=== PATIENT | female | born 1965 | race Caucasian/White ===

== ENCOUNTER 2018-01-08 15:24 | Emergency (ER) | END 2018-01-08 19:36 | disposition home or self-care (01) ==

== ENCOUNTER 2018-09-13 21:01 | Emergency (ER) | payer OTHER ==
[~2018-09-13] VITALS: Ht 170.2 cm; Wt 72.0 kg
[~2018-09-13 21:01] MED LIST: ASPI81TA50 PO; ATOR40TA68 PO; BEN25 PO; EMPA10TA PO; ERGO500013 PO; GLYB1TAB3 PO; IBUP-1545 PO; LYRI100 PO; METO10TA3 PO; NAPR-688 PO; OMEP40CA6 PO; PANT40TA4 PO; SITA100T11 PO; TERB250T13 PO; TIZA4TAB PO; TOPI200C6 PO; ZOLP10TA5 PO
[2018-09-13 21:08] VITALS: Ht 170.2 cm; Wt 72.0 kg
[2018-09-13] MEDS ORDERED: KETOROLAC 15 MG INJ IV STA (22:34)
--- NOTE | 2018-09-14 00:11 | ERD ---
ER Documentation Chief Complaint Chief Complaint CP "pressure" X 2 hrs, bilateral hand numbness, nausea, dizziness, X 6 hrs HPI This is a 53-year-old female with a past medical history of hyperlipidemia, diabetes, fibromyalgia, chronic pain who is presenting with several hours of waxing and waning moderate nonradiating midsternal pressure-like chest pain, increased anxiousness, hyperventilation, bilateral hand tingling, nausea and lightheadedness. The patient reports that he eats she gets these symptoms regularly, but typically they do not last this long. The patient does endorse being under a significant amount of stress due to her chronic pain syndromes. She is constantly in pain, and it can be overwhelming. She does not have a personal or family history of heart attack or stroke per her report. The patient denies feeling sick recently. The patient denies fever or chills. The patient has had no headache or vision changes. The patient does not endorse neck or back pain. The patient denies abdominal pain. The patient denies changes to bowel movements or urination. The patient has had no focal deficits. The patient has had no weakness or numbness to the face or extremities. ROS All systems reviewed and are negative except as per history of present illness. Medications Home Meds Active Scripts Ibuprofen* (Motrin*) 600 Mg Tab, 600 MG PO Q6H PRN for PAIN AND/OR INFLAMMATION, #30 TAB Prov:NEHA CORREIA MD 09/14/18 Naproxen* (Naproxen*) 500 Mg Tablet, 500 MG PO BID PRN for PAIN, #30 TAB Prov:MIRZA SIMPSON MD 01/08/18 Reported Medications Omeprazole* (Omeprazole*) 40 Mg Capsule.dr, 40 MG PO DAILY, #30 CAP STOP TAKING WHEN TAKE PANTOPRAZOLE 01/08/18 Diphenhydramine Hcl* (Benadryl*) 25 Mg Cap, 25 MG PO Q6H PRN for ITCHING, CAP 01/08/18 Glyburide/Metformin HCl (Glucovance 5-500 mg Tablet) 1 Each Tablet, 2 EACH PO BID, TAB 01/08/18 Empagliflozin (Jardiance) 10 Mg Tablet, 10 MG PO QAM, TAB 01/08/18 Sitagliptin* (Januvia*) 100 Mg Tablet, 100 MG PO DAILY, #30 TAB 01/08/18 Tizanidine Hcl* (Tizanidine Hcl*) 4 Mg Tablet, 8 MG PO QHS PRN for SPASTICITY, TAB 01/08/18 Pantoprazole* (Pantoprazole*) 40 Mg Tablet.dr, 40 MG PO AC BREAKFAST, TAB STOP TAKING WHEN TAKE OMEPRAZOLE 01/08/18 Metoclopramide Hcl* (Metoclopramide Hcl*) 10 Mg Tablet, 10 MG PO Q6H PRN for NAUSEA AND OR VOMITING, TAB 01/08/18 Atorvastatin* (Atorvastatin*) 40 Mg Tablet, 40 MG PO QHS, #30 TAB 01/08/18 Terbinafine Hcl* (Terbinafine Hcl*) 250 Mg Tablet, 250 MG PO DAILY, TAB 01/08/18 Aspirin (Aspir-Low) 81 Mg Tablet.dr, 81 MG PO DAILY 01/08/18 Ergocalciferol (Vitamin D2) (VITAMIN D2) 50,000 Unit Capsule, 16630 UNIT PO Q7D, CAP 01/08/18 Ibuprofen* (Ibuprofen*) 800 Mg Tab, 800 MG PO Q6H PRN for PAIN, TAB 01/08/18 Pregabalin* (Lyrica*) 100 Mg Capsule, 100 MG PO TID, CAP 01/08/18 Topiramate* (Trokendi XR*) 200 Mg Cap.er.24h, 600 MG PO QHS, CAP 01/08/18 Zolpidem Tartrate* (Zolpidem Tartrate*) 10 Mg Tablet, 10 MG PO QHS PRN for INSOMNIA, #30 TAB 01/08/18 Allergies Allergies: Coded Allergies: No Known Drug Allergy (Verified Allergy, Unknown, 01/08/18) PMhx/Soc History of Surgery: Yes (APPENDECTOMY, LOWER BACK FUSION, CHOLECYSTECTOMY) Anesthesia Reaction: No Hx Neurological Disorder: No Hx Respiratory Disorders: No Hx Cardiac Disorders: Yes (Hyperlipidemia, diabetes) Hx Psychiatric Problems: No Hx Miscellaneous Medical Probl: Yes (Fibromyalgia, chronic pain) Hx Alcohol Use: No Hx Substance Use: No Hx Tobacco Use: Yes (1/2 pack daily) Smoking Status: Current every day smoker FmHx Family History: diabetes Physical Exam Vitals Vital Signs Date Temp Pulse Resp B/P (MAP) Pulse Ox O2 O2 Flow FiO2 Time Delivery Rate 09/14/18 87 13 118/55 99 Room Air 00:29 (76) 09/13/18 Nasal 2 21:41 Cannula 09/13/18 98.9 100 18 132/69 99 21:08 (90) Physical Exam Const: No apparent distress, well-developed, well-nourished Head: Normocephalic, Atraumatic Eyes: Normal Conjunctiva. Extraocular movements intact. Pupils equal, round and reactive to light ENT: Normal External Ears, Nose and Mouth. Neck: Full range of motion. No meningismus. Resp: Clear to auscultation bilaterally, No wheezes, rales or rhonchi Cardio: Regular rate and rhythm. No murmurs, rubs or gallops Abd: Soft, non tender, non distended. Normal bowel sounds Skin: No petechiae or rashes Back: No midline tenderness. No CVA tenderness Ext: No cyanosis, or edema Neur: Awake and alert, oriented 4. Cranial nerves intact. No facial droop. Normal strength, sensation and coordination. Psych: Normal Mood and Affect Result Diagram: 09/13/18213709/[id number]/182137 Results 24 hrs Laboratory Tests Test 09/13/18 21:38 White Blood Count 8.9 10^3/ul Red Blood Count 4.79 10^6/ul Hemoglobin 13.9 g/dl Hematocrit 41.1 % Mean Corpuscular Volume 85.8 fl Mean Corpuscular Hemoglobin 29.0 pg Mean Corpuscular Hemoglobin Concent 33.8 g/dl Red Cell Distribution Width 13.6 % Platelet Count 215 10^3/UL Mean Platelet Volume 10.4 fl Immature Granulocytes % 0.100 % Neutrophils % 51.3 % Lymphocytes % 40.2 % Monocytes % 6.9 % Eosinophils % 1.2 % Basophils % 0.3 % Nucleated Red Blood Cells % 0.0 /100WBC Immature Granulocytes # 0.010 10^3/ul Neutrophils # 4.5 10^3/ul Lymphocytes # 3.6 10^3/ul Monocytes # 0.6 10^3/ul Eosinophils # 0.1 10^3/ul Basophils # 0.0 10^3/ul Nucleated Red Blood Cells # 0.0 10^3/ul Sodium Level 147 mmol/L Potassium Level 4.1 mmol/L Chloride Level 106 mmol/L Carbon Dioxide Level 30 mmol/L Anion Gap 11 Blood Urea Nitrogen 20 mg/dl Creatinine 0.77 mg/dl Est Glomerular Filtrat Rate mL/min > 60 mL/min Glucose Level 115 mg/dl Calcium Level 9.9 mg/dl Troponin I < 0.012 ng/ml Current Medications Medications Dose Sig/Avila Start Time Status Last (Trade) Ordered Route PRN Stop Time Admin Dose Reason Admin Ketorolac 15 mg ONCE STAT 09/13/18 DC 09/13/18 Tromethamine IV 22:34 09/13/18 22:47 (Toradol) 22:35 Oxycodone/ 1 tab ONCE ONCE 09/14/18 DC 09/14/18 Acetaminophen PO 00:30 09/14/18 00:24 (Percocet 00:31 (5/ 325)) Procedures/MDM MDM The patient's presentation warrants further investigation. Previous medical r ecords, if available, were reviewed. LABS The patient's laboratory testing was obtained and reviewed. No emergent treatment was required unless described below. CBC: No E/o systemic infection or severe anemia or thrombocytopenia Chemistry: No E/o severe acidosis or alkalosis or renal failure or diabetic ketoacidosis Troponin: No E/o acute ischemia EKG EKG read by me: Rate/Rhythm: Regular rate and rhythm at a rate of 94 bpm Intervals: Normal [place]: Normal Impression: No evidence of acute ischemia or arrhythmia IMAGING Imaging and Radiology interpretation reviewed. CXR FINDINGS: The cardiomediastinal silhouette is within normal limits. The lungs are clear. No signs of pleural fluid or pneumothorax are seen. The osseous structures and soft tissues are unremarkable. IMPRESSION: No evidence for active cardiopulmonary disease. Electronically viewed and signed by Chinyere Gutierrez Physician on 09/13/2018 22:46 TREATMENT/DISPOSITION The patient presents for chest pain. The patient does have chronic pain including chest pain, and this could certainly be an exacerbation of her chronic symptoms. The patient also appears anxious in the room, and I do have suspicion for anxiety. That said, a cardiac workup was necessary. The patient's chest xray does not reveal pneumonia or pneumothorax or pleural effusions or pulmonary edema. The patient does not have a widened mediastinum and does not have signs or symptoms concerning for thoracic aortic aneurysm or dissection. The patient does not have pneumomediastinum or signs concerning for esophageal tear or rupture. The patient has no clinical or radiographic signs of pericardial effusion or tamponade. The patient does not have pneumoperitoneum and I have decreased suspicion of viscus perforation as possible referred pain. The patient does not have a history of heart failure and I have low suspicion for this. The patient does not have a diagnosis of COPD and is not wheezing today. The patient is not tachypneic or hypoxic. The patient is breathing comfortably and without pleuritic pain. The patient is not on hormonal therapy. The patient has no history of clotting or bleeding disorders. The patient has no calf tenderness. The patient has had no hemoptysis. I have decreased suspicion for PE. The patient's troponin and EKG are reassuring. I have low suspicion for acute coronary syndrome. The patient's HEART score is equal to or less than 3. This stratifies the patient into the low risk (<1%) group for an major adverse cardiac event within the next 30 days. Shared decision making was enacted. The risks and benefits of admission and discharge were discussed with the patient and it was ultimately decided that the patient would be discharged with close outpatient follow up and evaluation for functional testing within 72 hours. The patient was treated with Toradol and oxycodone with improvement of her symptoms. Upon reevaluation of the patient, symptoms have improved. No emergent diagnoses were identified. At this time, I feel that the patient stable for discharge. The patient was instructed to follow-up with a primary care physician in 1-3 days. The patient will be given strict precautions with which to return to the emergency department. Prescriptions: Ibuprofen The patient's blood pressure was elevated at greater than 120/80 while in the emergency department. The patient was otherwise stable with no evidence of hypertensive urgency or emergency. The patient does not require admission for blood pressure control. I have discussed with the patient the risks of hypertension. I have instructed the patient to return to the ER for any new or worsening symptoms including chest pain, shortness of breath, headache, blurred vision, confusion, nausea, vomiting or LOC. I have advised the patient to follow up with the primary care physician for outpatient monitoring and treatment for hypertension in 1-3 days. Disclaimer: Inadvertent spelling and grammatical errors are likely due to EHR/dictation software use and do not reflect on the overall quality of patient care. Note that the electronic time recorded on this note does not necessarily reflect the actual time of the patient encounter. Departure Diagnosis: Primary Impression: Nonspecific chest pain Additional Impressions: Hyperventilation Nausea Lightheadedness Anxiousness Condition: NEHA Choudhary MD Sep 14, 2018 00:11
[2018-09-14] MEDS ORDERED: IBUP-1542 PO (00:12)
[2018-09-14 00:29] VITALS: BP 118/55; PULSE 87; RESP 13
[2018-09-14] MEDS ORDERED: OXYCODONE/ACETAMINOPHEN (5/325) TAB PO ONE (00:30)
== END 2018-09-14 00:31 | disposition home or self-care (01) ==
LOC: E/R 21:01
DX: F41.9 Anxiety disorder, unspecified (principal); R06.4 Hyperventilation; R42 Dizziness and giddiness; R11.0 Nausea; E11.9 Type 2 diabetes mellitus without complications; F17.210 Nicotine dependence, cigarettes, uncomplicated; Z79.84 Long term (current) use of oral hypoglycemic drugs; Z79.82 Long term (current) use of aspirin
CPT/HCPCS: 36415; 71045; 80048; 84484; 85025; 93005; 96374; 99285; J1885